=== PATIENT | female | born 1995 | race Caucasian/White ===

== ENCOUNTER → 2019-05-04 16:13 | Outpatient (CLI) | payer OTHER, SELFPAY ==
--- NOTE | 2019-05-04 16:16 | DI.US.S_ITS ---
PROCEDURE: US OB >= 14 WEEKS FETUS INDICATIONS: 20 WEEK ANATOMY OUTSIDE/PRIOR DATING DATA: Last menstrual period (LMP): 07/06/18. LMP-based estimated date of delivery (JUSTIN): 09/12/19. First dating scan (date and location): 05/04/19. Estimated date of delivery (JUSTIN) from first dating scan: 09/12/19. TECHNIQUE: Real-time scanning was performed of the fetus, with image documentation and biometric measurements. Endovaginal scanning: Not performed COMPARISON: None. FINDINGS: General: A single living intrauterine gestation is present. Presentation: Vertex. Placenta: Placental position is posterior, without previa. Amniotic fluid index: 23.0 cm, normal range is 5-24 cm. heart rate: 150 beats per minute. Maternal cervical canal: 3.8 cm long. Normal lower limit is 2.5 cm. biometrics: Biparietal diameter: 5.0 cm, 21 weeks 2 days Head circumference: 18.5 cm, 20 weeks 6 days Abdominal circumference: 18.2 cm, 21 weeks 5 days Femur length: 2.5 cm, 21 weeks one day Estimated gestational age from initial scan: 21 weeks 2 days Composite gestational age from present scan: 21 weeks 2 days Estimated weight and percentile: 460 g, 47th percentile Measurement variability for biometric dating: +/- 7 days from 14 weeks to 15 weeks 6 days gestation, +/- 10 days from 16 weeks to 21 weeks 6 days gestation, +/- 2 weeks from 22 weeks to 27 weeks 6 days gestation, +/- 3 weeks for 28 weeks gestation or later. weight reference: 4500 g or EFW >90/95% is considered macrosomia or large for gestational age. EFW <10% is small for gestational age. EFW 5% or less is considered intra-uterine growth restriction. Anatomic survey: Neuro: Ventricles are non-dilated at less than 10 mm. Cisterna magna is normal at 3-11 mm. Cerebellum is normal in size and morphology. Nuchal skin fold: Normal at less than 6 mm between 14-21 weeks gestational age. Face: Nose and lips, facial profile are normal. Spine: No evidence for spina bifida. Heart: 4-chambered heart is present, with normal ventricular outflow tracts. Diaphragm: Diaphragm is intact. Stomach: Left-sided stomach is present. Kidneys: No hydronephrosis. Normal is less than 5 mm in 2nd trimester, less than 7 mm in 3rd trimester. Cord: 3-vessel cord has orthotopic insertion. Bladder: Normal in size. Extremities: All 4 extremities identified. IMPRESSION: Single live intrauterine fetus in vertex presentation. Expected interval growth. Normal anatomic survey Dictated by: Eugenio Onofre M.D. on 05/04/2019 at 17:58 Approved by: Eugenio Onofre M.D. on 05/04/2019 at 18:02
== END ==
PROVIDERS: Visit Provider Family Medicine
DX: Z34.82 Encounter for supervision of other normal pregnancy, second trimester (principal); Z3A.21 21 weeks gestation of pregnancy
CPT/HCPCS: 76811

== ENCOUNTER → 2019-06-12 10:28 | Outpatient (CLI) | payer OTHER, SELFPAY ==
[2019-06-12 12:10] LABS: Hemoglobin 11.8 g/dL (12.0-16.0)
[2019-06-12 12:23] LABS: GTT (PREG) 1 Hour PP 50gm Dose 83 mg/dL (76-139)
== END ==
PROVIDERS: PCP Family Medicine; Referring Provider Family Medicine; Visit Provider Family Medicine
DX: Z34.00 Encounter for supervision of normal first pregnancy, unspecified trimester (principal)
CPT/HCPCS: 36415; 82950; 85014; 85018

== ENCOUNTER → 2019-08-20 13:15 | Outpatient (CLI) | payer OTHER, SELFPAY ==
[2019-08-21 08:37] LABS: Strep Grp B PCR NEG for Grp B Strep
== END ==
PROVIDERS: PCP Family Medicine; Referring Provider Family Medicine; Visit Provider Family Medicine
DX: Z34.83 Encounter for supervision of other normal pregnancy, third trimester (principal)
CPT/HCPCS: 87653

== ENCOUNTER → 2019-08-29 10:41 | Outpatient (CLI) | payer OTHER, SELFPAY ==
--- NOTE | 2019-08-29 10:44 | DI.US.S_ITS ---
PROCEDURE: US OB LIMITED INDICATIONS: SIZE LESS THAN DATES OUTSIDE/PRIOR DATING DATA: Last menstrual period (LMP): 12/06/18. LMP-based estimated date of delivery (JUSTIN): 09/12/19 First dating scan (date and location): 05/04/19. Estimated date of delivery (JUSTIN) from first dating scan: 09/12/19. TECHNIQUE: Real-time scanning was performed of the fetus, with image documentation and biometric measurements. Endovaginal scanning: Not needed COMPARISON: None. FINDINGS: General: A single living intrauterine gestation is present. Presentation: Vertex. Placenta: Placental position is posterior, without previa. Amniotic fluid index: 14.0 cm, normal range is 5-24 cm. heart rate: 144 beats per minute. biometrics: Biparietal diameter: 9.4 cm, 38 weeks 2 days Head circumference: 32.6 cm, 36 weeks 6 days Abdominal circumference: 38.1 cm, 37 weeks 0 days Femur length: 7.1 cm, 36 weeks 3 days Estimated gestational age from initial scan: 38 weeks 0 days Composite gestational age from present scan: 37 weeks 0 days Estimated weight and percentile: 3094 g, 36th percentile Measurement variability for biometric dating: +/- 7 days from 14 weeks to 15 weeks 6 days gestation, +/- 10 days from 16 weeks to 21 weeks 6 days gestation, +/- 2 weeks from 22 weeks to 27 weeks 6 days gestation, +/- 3 weeks for 28 weeks gestation or later. weight reference: 4500 g or EFW >90/95% is considered macrosomia or large for gestational age. EFW <10% is small for gestational age. EFW 5% or less is considered intra-uterine growth restriction. Other: Not applicable. IMPRESSION: Single living intrauterine gestation with appropriate interval growth. No sign of abnormal amniotic fluid volume. The delivery date is projected to be centered on 09/12/19. Dictated by: Mat Moralez M.D. on 08/29/2019 at 12:26 Approved by: Mat Moralez M.D. on 08/29/2019 at 12:29
== END ==
PROVIDERS: PCP Family Medicine; Referring Provider Family Medicine; Visit Provider Family Medicine
DX: Z36.4 Encounter for antenatal screening for fetal growth retardation (principal); Z3A.37 37 weeks gestation of pregnancy
CPT/HCPCS: 76815

== ENCOUNTER 2019-09-04 10:03 | Outpatient (CLI) | payer OTHER, SELFPAY ==
--- NOTE | 2019-09-04 10:52 | PM.OBTRLD ---
Visit Information Visit Information Date of evaluation: 09/04/19 Primary OB Provider: Ivett Hastings Reason for Evaluation: Yes rule out labor [facility] Medical History (Updated 09/04/19 @ 11:15 by Ivett Hastings MD) Acne (Acute) Attention deficit hyperactivity disorder (Acute) Social History marital status: details: Jos Roblero household members: spouse lives independently: Yes education level: college ([employer]) occupational status: employed and student do you feel safe at home: Yes Smoking Status: Never smoker substance use type: does not use Type(s) of exercise: aerobic frequency: 3-4 times per week duration: 15-30 minutes/day Evaluation Evaluation Baseline heart rate: 125 Variability: Moderate (11-25) monitor accelerations: Present monitor decelerations: Absent Contraction Frequency (minutes): 6 Uterine Contraction Intensity: Moderate Cervical dilation (cm): 2 Cervical effacement (%): 80 station: -2 Comments: Irregular contractions, q4-6 minutes Diagnosis, Plan/Disposition Final Diagnosis (1) Irregular contractions: Current Visit: Yes Status: Acute Plan/Disposition Plan: 38w6d. Contractions irregular and spacing further now. Not in active labor. OB Disposition: home
== END 2019-09-04 11:22 | disposition home or self-care (01) ==
LOC: OB 09-05 12:28
PROVIDERS: PCP Family Medicine; Referring Provider Family Medicine; Visit Provider Family Medicine
DX: Z34.03 Encounter for supervision of normal first pregnancy, third trimester (principal); Z3A.39 39 weeks gestation of pregnancy
CPT/HCPCS: 59025; G0378; G0379

== ENCOUNTER 2019-09-05 08:31 | Inpatient (IN) | payer OTHER, SELFPAY ==
[2019-09-05 11:04] LABS: COVID19 -Nasal RAPID Negative (Negative)
[2019-09-05] MEDS: LACTATED RINGERS 1,000 ML 100 ML IV (12:10)
--- NOTE | 2019-09-05 12:15 | PM.OBHP.1 ---
OB HPI Date/Time Date of admission: 09/05/19 Date Patient Seen: 09/05/19 Time Patient Seen: 12:20 History of Present Condition Chief complaint: OBSERVATION : 1 Para: 0 Estimated Date of Delivery: 09/12/19 Estimated Gestational Age (weeks): 39w0d Narrative: Alberta Roblero is a 23 year old at 39w0d who presented with concern for LOF and painful contractions. The pt reports that around 5:30am she felt a gush of fluid. The leaking continued for a few hours, but then stopped. She has intermittently been having painful contractions since yesterday morning as well. No vaginal bleeding. She is feeling her baby move regularly. History of Present care: good care and pounds weight gain (30) Dating criteria: LMP confirmed by 1st trimester US Ultrasounds: normal mid trimester US Obstetrical complications: none Medical complications: none Preadmission Labs Blood type: AB (+) positive -: Antibody screen: negative, GBS status: negative, HBsAG: negative, HIV: negative and RPR/VDLR: negative -: Chlamydia screen: not detected and Gonorrhea screen: not detected -: Rubella: immune and Varicella: immune HCT: 34.0 PAP: Normal Integrated screen: Negative 1 hr GTT: 83 Evaluation Evaluation Baseline heart rate: 130 Variability: Moderate (11-25) monitor accelerations: Present monitor decelerations: Absent Contraction Frequency (minutes): 3 Uterine Contraction Intensity: Strong/Firm Cervical dilation (cm): 5 Cervical effacement (%): 100 station: 0 Laboratory results: Laboratory Tests 09/05/19 09/05/19 09:30 09:32 COVID-19 PCR Negative Cancelled Non-invasive Membranes Rupture Test: negative [facility] Medical History (Updated 09/04/19 @ 11:15 by Ivett Hastings MD) Acne (Acute) Attention deficit hyperactivity disorder (Acute) Social History marital status: details: Jos Roblero household members: spouse lives independently: Yes education level: college ([employer]) occupational status: employed and student do you feel safe at home: Yes Smoking Status: Never smoker substance use type: does not use Type(s) of exercise: aerobic frequency: 3-4 times per week duration: 15-30 minutes/day Meds Home Medications and Allergies Home Medications Medication Instructions Recorded Confirmed Type multivit no.42-iron 38 1 cap PO DAILY 04/18/19 08/20/19 History mg-methyltetrahydfolate 1 mg-dha 225 mg capsule double electric breast pump and #1 ea 07/09/19 08/20/19 Rx supplies Allergies Allergy/AdvReac Type Severity Reaction Status Date / Time No Known Drug Allergies Allergy Unverified 08/27/19 09:28 Exam Narrative Exam Narrative: Gen: NAD, sitting in bed, appears well CV: RRR, no murmurs Resp: clear to auscultation bilaterally Abd: soft, gravid, nondistended Ext: trace edema Objective Labs Labs: Laboratory Results - last 24 hr 09/05/19 09/05/19 09:30 09:32 COVID-19 PCR Negative Cancelled Assessment and Plan Assessment and Plan Assessment and Plan narrative: 23yo at 39w0d who presented with concern for LOF, with negative amniosure. Converted to active labor after 2hrs walking, with 1-2 cm cervical change. GBS negative, Rh positive. - Expectant management, anticipate - FHT reassuring - Epidural for pain control now - GBS negative, no prophylaxis
[2019-09-05 12:47] LABS: Add Manual Diff / Slide Review NO; Basophils Absolute Auto 0 /uL (0-100); Basophils Percent Auto 0.4 % (0-2); Eosinophils Absolute Auto 0 /uL (0-450); Eosinophils Percent Auto 0.2 % (2-4); Hemoglobin 13.3 g/dL (12.0-16.0); Lymphocytes Absolute Auto 1100 /uL (1100-4500); Lymphocytes Percent Auto 10.1 % (25-40); Mean Corpuscular HGB Conc 34.2 % (30-36); Mean Corpuscular Hemoglobin 30.1 PG (26-34); Mean Corpuscular Volume 87.9 fL (80-100); Monocytes Absolute Auto 600 /uL (0-900); Monocytes Percent Auto 5.8 % (3-14); Neutrophils Absolute Auto 9300 /uL (1500-7000); Neutrophils Percent Auto 83.5 % (50-75); Platelet Count 316 X10^3/uL (150-400); Red Blood Cell Count 4.43 X10^6/uL (4.0-5.2); Red Cell Distribution Width 14.8 % (11.6-14.8); White Blood Cell Count 11.2 X10^3/uL (4.5-11.0)
[2019-09-05] MEDS: fentaNYL 100 MCG/2 ML INJ 50 MCG IV (13:00)
[2019-09-05] MEDS: ONDANSETRON 4 MG/2 ML INJ IV (13:27)
[2019-09-05 14:10] VITALS: BP 118/65
[2019-09-05] MEDS: OXYTOCIN 10 UNIT/ML VIAL 20 UNIT (15:53)
--- NOTE | 2019-09-05 16:11 | PM.OBPRVD ---
Labor & Delivery Delivery date: 09/05/19 Intrapartal events: None Cervical ripening method: none Induction method: none Delivery monitor: external FHT Route of delivery: Episiotomy description: None L&D Laceration Description: None Estimated blood loss (mL): 150 Anesthesia type: Epidural Complications: None Narrative: PROCEDURE: at 39w0d presented in active labor and was admitted to Labor and Delivery. The patient progressed through the 1st stage over 4 hours. Pain was controlled with an epidural. The patient progressed through the 2nd stage over 45 minutes and delivered a viable male infant with APGARs 9/9 at 15:46 via without complications. The cord was clamped and cut after it stopped pulsating. The perineum and vagina were inspected with no lacerations. PREPROCEDURE DIAGNOSIS: Intrauterine at 39w0d GBS negative RH positive POSTPROCEDURE DIAGNOSIS: Intrauterine at 39w0d, delivered Same as preprocedure ROM APPEARANCE: Clear BABY A DELIVERY TIME: 15:46 BABY A WEIGHT: 6lb10.6oz BABY A NUCHAL CORD: None PLACENTA DELIVERY TIME: 15:52 PLACENTA APPEARANCE: Intact [place] Baby 1: Infant gender: Male Presentation: vertex position: Right Occiput Anterior Placenta delivery description: Spontaneous cord vessel description: 3 Vessels score (1 min): 9 score (5 min): 9 Plan for aftercare: Normal care
[2019-09-05 17:48] VITALS: TEMP 35.9
[2019-09-05] MEDS: IBUPROFEN 600 MG TABLET PO (17:48)
[2019-09-05] MEDS: DERMOPLAST SPRAY 20% 60 ML 1 SPRAY TOP (17:49)
[2019-09-05] MEDS: ACETAMINOPHEN 325 MG TABLET 650 MG PO (20:11)
[2019-09-06] MEDS: IBUPROFEN 600 MG TABLET PO ×2 (00:11→07:13)
--- NOTE | 2019-09-06 08:25 | P.DS_ITS ---
Discharge Providers Provider Date of admission: 09/05/19 08:31 Discharge Date: 09/06/19 Primary care physician: Ivett Hastings MD Consults: 09/06/19 16:10 Consult to Logistics Clerk Routine Comment: Discharge provider: Ivett Hastings MD Summary Hospital Course Date Patient Seen: 09/06/19 Time Patient Seen: 07:30 Procedures: Spontaneous vaginal delivery Hospital Course: The pt presented in active labor. She received an epidural for pain control. She progressed to complete without intervention. She had an uncomplicated of a viable baby boy at 15:46 on 09/05/19. There were no lacerations. The pt tolerated delivery well. , there were no complications. At the time of discharge she was voiding, ambulating, and passing flatus without difficulty. Her pain was well controlled. Her lochia was decreasing appropriately. She was with good latch. She will f/u in clinic in 6 weeks. Peripartum Data Delivery Method: Natural Vaginal Laceration description: None Episiotomy description: None Procedures: Spontaneous vaginal delivery complications: none 1: Gender: Male Discharge Diagnosis (1) Spontaneous vaginal delivery: Status: Acute Time Spent with Patient Time attestation: Total time spent providing and/or coordinating discharge services: Time spent: Greater than 30 minutes Objective Labs Result Diagrams: 09/05/19 12:10 Labs: Laboratory Results - last 24 hr 09/05/19 09/05/19 09/05/19 09:30 09:32 12:10 WBC 11.2 H RBC 4.43 Hgb 13.3 Hct 39.0 MCV 87.9 MCH 30.1 MCHC 34.2 RDW 14.8 Plt Count 316 Neut % (Auto) 83.5 H Lymph % (Auto) 10.1 L Ritchie % (Auto) 5.8 Eos % (Auto) 0.2 L Baso % (Auto) 0.4 Neut # (Auto) 9300 H Lymph # (Auto) 1100 Ritchie # (Auto) 600 Eos # (Auto) 0 Baso # (Auto) 0 COVID-19 PCR Negative Cancelled Blood Type Antibody Screen 09/05/19 12:10 WBC RBC Hgb Hct MCV MCH MCHC RDW Plt Count Neut % (Auto) Lymph % (Auto) Ritchie % (Auto) Eos % (Auto) Baso % (Auto) Neut # (Auto) Lymph # (Auto) Ritchie # (Auto) Eos # (Auto) Baso # (Auto) COVID-19 PCR Blood Type AB Positive Antibody Screen Negative Exam Narrative Exam Narrative: Gen: NAD, sitting comfortably in bed, appears well CV: RRR, no murmurs Resp: clear to auscultation bilaterally Abd: soft, nontender, fundus firm and below umbilicus, normoactive bowel sounds, nondistended Ext: no edema Discharge Plan Discharge Plan Patient Disposition: Home Discharge orders & Medications Prescriptions: New acetaminophen 325 mg Tablet 650 mg PO Q6HR PRN (Reason: Pain, Mild (1-3)) Qty: 30 RF: 0 Dermoplast (with menthol) 20-0.5 % Aerosol 1 spray topical Q1HR PRN (Reason: perineal pain) Qty: 54 RF: 0 docusate sodium [DOK] 100 mg Capsule 100 mg PO DAILY Qty: 30 RF: 0 ibuprofen 600 mg Tablet 600 mg PO Q6HR PRN (Reason: Pain, Mild (1-3)) Qty: 30 RF: 0 [id number]-D-Uukkbr Cream 1 applic topical PRN PRN (Reason: Tenderness) Qty: 15 RF: 0 Continued (DME) double electric breast pump and supplies Qty: 1 RF: 0 multivit no.[id number]-dha 38-1-225 mg capsule 1 cap PO DAILY RF: 0 Follow up/Referrals: Ivett Hastings MD [Primary Care Provider] - 6 Weeks Diet/Activity/Treatments Diet: Diet as Tolerated and Regular Skin/Wound/Dressing Care Report to your healthcare provider any signs of infection, such as:: chills, fever, increased pain and unusual drainage Visit Report/Discharge Packet Instructions: DI for Labor and Delivery, Vaginal Visit Report Forms: Patient Portal/API, Stroke Signs & Symptoms Discharge Data Primary Care Provider: Ivett Hastings Attending Provider: Ivett Hastings Admit Date/Time: 09/05/19 08:31
[2019-09-06] MEDS: DOCUSATE 100 MG CAPSULE PO (09:49)
[2019-09-06] MEDS: PRENATAL VIT,CALC/IRON/FOLIC 1 TABLET 1 TAB PO (09:49)
[2019-09-06 14:29] VITALS: BP 118/65; TEMP 35.9
[2019-09-06] MEDS: ACETAMINOPHEN 325 MG TABLET 650 MG PO (15:08)
== END 2019-09-06 17:45 | disposition home or self-care (01) | DRG 807 ==
PROVIDERS: Admitting Provider Family Medicine; PCP Family Medicine; Referring Provider Family Medicine; Visit Provider Family Medicine
DX: O80 Encounter for full-term uncomplicated delivery (principal); Z37.0 Single live birth; Z3A.39 39 weeks gestation of pregnancy; Z11.59 Encounter for screening for other viral diseases
CPT/HCPCS: 01967; 59050; 59410; 85025; 86850; 86900; 86901; 87635; G0379; J2405; J2590; J3010

== ENCOUNTER → 2020-11-13 18:57 | Outpatient (CLI) | payer OTHER, SELFPAY ==
[2020-11-13 20:16] LABS: COVID19 -Nasal RAPID Negative (Negative)
== END ==
PROVIDERS: PCP Nurse Practitioner Family; Visit Provider Physician Assistant
DX: J31.2 Chronic pharyngitis (principal); Z20.822 Contact with and (suspected) exposure to COVID-19
CPT/HCPCS: 87070; 87635

== ENCOUNTER → 2022-05-26 08:59 | Outpatient (CLI) | payer OTHER, SELFPAY ==
[2022-05-26 09:18] LABS: Add Manual Diff / Slide Review NO; Basophils Absolute Auto 0 /uL (0-100); Basophils Percent Auto 0.9 % (0-2); Eosinophils Absolute Auto 100 /uL (0-450); Eosinophils Percent Auto 1.7 % (2-4); Hematocrit 40.6 % (36-46); Hemoglobin 13.9 g/dL (12.0-16.0); Lymphocytes Absolute Auto 1300 /uL (1100-4500); Lymphocytes Percent Auto 28.1 % (25-40); Mean Corpuscular HGB Conc 34.2 % (30-36); Mean Corpuscular Hemoglobin 29.6 PG (26-34); Mean Corpuscular Volume 86.8 fL (80-100); Monocytes Absolute Auto 400 /uL (0-900); Monocytes Percent Auto 8.2 % (3-14); Neutrophils Absolute Auto 2900 /uL (1500-7000); Neutrophils Percent Auto 61.1 % (50-75); Platelet Count 305 X10^3/uL (150-400); Red Blood Cell Count 4.68 X10^6/uL (4.0-5.2); Red Cell Distribution Width 13.5 % (11.6-14.8); White Blood Cell Count 4.8 X10^3/uL (4.5-11.0)
[2022-05-26 12:20] LABS: Alanine Aminotransferase 15 IU/L (<35); Albumin 4.5 g/dL (3.5-5.0); Albumin Globulin Ratio 1.6 (1.0-2.8); Alkaline Phosphatase 40 U/L (38-126); Aspartate Aminotransferase 22 IU/L (14-36); BUN Creatinine Ratio 19.3 (6-22); Bilirubin Total 0.7 mg/dL (0.2-1.3); Blood Urea Nitrogen 11 mg/dL (7-17); Carbon Dioxide 28 mmol/L (22-32); Chloride 101 mmol/L (98-107); Cholesterol 124 mg/dL (140-199); Estimated Glomerular Filt Rate > 60 mL/min (>60); Globulin 2.8 g/dL (1.7-4.1); Glucose 95 mg/dL (70-100); HDL Cholesterol 58 mg/dL (40-60); HEMOLYSIS < 15 (0-50); LDL Cholesterol Calculated 59 mg/dL (<100); Potassium 3.8 mmol/L (3.4-5.1); Sodium 137 mmol/L (137-145); Total Protein 7.3 g/dL (6.3-8.2); Triglycerides 35 mg/dL (35-150)
[2022-05-26 12:50] LABS: TSH w/ Reflex to FT4 1.46 uIU/mL (0.47-4.68)
[2022-05-26 13:09] LABS: Vitamin B12 377 pg/mL (239-931)
== END ==
PROVIDERS: PCP Family Medicine; Referring Provider Family Medicine; Visit Provider Family Medicine
DX: L65.9 Nonscarring hair loss, unspecified (principal); Z00.00 Encounter for general adult medical examination without abnormal findings; Z13.220 Encounter for screening for lipoid disorders
CPT/HCPCS: 36415; 80053; 80061; 82607; 84443; 85025

== ENCOUNTER → 2022-08-04 14:27 | Outpatient (CLI) | payer OTHER, SELFPAY ==
[2022-08-04 15:34] LABS: Add Manual Diff / Slide Review NO; Basophils Absolute Auto 0 /uL (0-100); Basophils Percent Auto 0.5 % (0-2); Eosinophils Absolute Auto 200 /uL (0-450); Eosinophils Percent Auto 2.2 % (2-4); Hematocrit 36.4 % (36-46); Hemoglobin 12.7 g/dL (12.0-16.0); Lymphocytes Absolute Auto 1600 /uL (1100-4500); Lymphocytes Percent Auto 18.4 % (25-40); Mean Corpuscular HGB Conc 34.9 % (30-36); Mean Corpuscular Hemoglobin 30.3 PG (26-34); Mean Corpuscular Volume 86.9 fL (80-100); Monocytes Absolute Auto 500 /uL (0-900); Monocytes Percent Auto 6.3 % (3-14); Neutrophils Absolute Auto 6200 /uL (1500-7000); Neutrophils Percent Auto 72.6 % (50-75); Platelet Count 336 X10^3/uL (150-400); Red Blood Cell Count 4.19 X10^6/uL (4.0-5.2); Red Cell Distribution Width 13.3 % (11.6-14.8); White Blood Cell Count 8.6 X10^3/uL (4.5-11.0)
[2022-08-04 17:37] LABS: Appearance Urine UA CLEAR; Bilirubin Urine UA NEGATIVE (NEGATIVE); Color Urine UA YELLOW; Glucose Urine UA NEGATIVE (Negative); Ketones Urine UA TRACE (NEGATIVE); Leukocyte Esterase Urine UA NEGATIVE (NEGATIVE); Nitrite Urine UA NEGATIVE (Negative); Occult Blood Urine UA NEGATIVE (Negative); Protein Urine UA NEGATIVE (Negative); Specific Gravity Urine UA >=1.030 (1.000-1.035); Urobilinogen Urine UA 0.2 E.U./dL (0.2)
[2022-08-04 17:41] LABS: pH Urine UA 5.5 (4.5-8.0)
[2022-08-04 19:03] LABS: Hepatitis B Surface Antigen NEGATIVE s/c (NEGATIVE)
[2022-08-04 19:05] LABS: HIV 1 & 2 Ab/Ag 4th Gen Combo NEGATIVE (NEGATIVE); Hep C Virus Ab w/Reflex Quant NEGATIVE s/c (NEGATIVE)
[2022-08-05 19:28] LABS: Varicella IgG Antibody 169 index (Immune >165)
[2022-08-06 06:08] LABS: RPR Screen Non Reactive (Non Reactive)
== END ==
PROVIDERS: PCP Family Medicine; Referring Provider Family Medicine; Visit Provider Family Medicine
DX: Z34.81 Encounter for supervision of other normal pregnancy, first trimester (principal)
CPT/HCPCS: 36415; 80055; 81003; 86787; 86803; 86850; 86900; 86901; 87389

== ENCOUNTER → 2022-09-03 11:35 | Outpatient (CLI) | payer OTHER, SELFPAY ==
[2022-09-03 12:48] LABS: HCG Quantitative /Beta subunit 321.8 mIU/mL
== END ==
PROVIDERS: PCP Family Medicine; Referring Provider Family Medicine; Visit Provider Family Medicine
DX: O03.4 Incomplete spontaneous abortion without complication (principal); Z3A.00 Weeks of gestation of pregnancy not specified
CPT/HCPCS: 36415; 84702

== ENCOUNTER → 2022-09-07 08:01 | Outpatient (CLI) | payer OTHER, SELFPAY ==
[2022-09-07 10:53] LABS: HCG Quantitative /Beta subunit 145.2 mIU/mL
== END ==
PROVIDERS: PCP Family Medicine; Referring Provider Family Medicine; Visit Provider Family Medicine
DX: O03.4 Incomplete spontaneous abortion without complication (principal)
CPT/HCPCS: 36415; 84702

== ENCOUNTER → 2022-09-14 12:19 | Outpatient (CLI) | payer OTHER, SELFPAY ==
[2022-09-14 14:15] LABS: HCG Quantitative /Beta subunit 82.8 mIU/mL
== END ==
PROVIDERS: PCP Family Medicine; Referring Provider Family Medicine; Visit Provider Family Medicine
DX: O03.9 Complete or unspecified spontaneous abortion without complication (principal); Z34.90 Encounter for supervision of normal pregnancy, unspecified, unspecified trimester
CPT/HCPCS: 36415; 84702

== ENCOUNTER → 2023-04-12 06:59 | Outpatient (CLI) | payer OTHER, SELFPAY ==
[2023-04-12 08:06] LABS: Add Manual Diff / Slide Review NO; Basophils Absolute Auto 0 /uL (0-100); Basophils Percent Auto 0.8 % (0-2); Eosinophils Absolute Auto 200 /uL (0-450); Hematocrit 39.6 % (36-46); Hemoglobin 13.8 g/dL (12.0-16.0); Lymphocytes Absolute Auto 1100 /uL (1100-4500); Lymphocytes Percent Auto 20.8 % (25-40); Mean Corpuscular HGB Conc 34.7 % (30-36); Mean Corpuscular Hemoglobin 30.1 PG (26-34); Mean Corpuscular Volume 86.6 fL (80-100); Monocytes Absolute Auto 400 /uL (0-900); Monocytes Percent Auto 7.1 % (3-14); Neutrophils Absolute Auto 3600 /uL (1500-7000); Neutrophils Percent Auto 67.3 % (50-75); Platelet Count 244 X10^3/uL (150-400); Red Blood Cell Count 4.57 X10^6/uL (4.0-5.2); Red Cell Distribution Width 13.9 % (11.6-14.8); White Blood Cell Count 5.3 X10^3/uL (4.5-11.0)
[2023-04-12 08:50] LABS: Hepatitis B Surface Antigen NEGATIVE s/c (NEGATIVE); Rubella Antibody IgG 23.6 IU/mL (>15)
[2023-04-12 09:07] LABS: HIV 1 & 2 Ab/Ag 4th Gen Combo NEGATIVE (NEGATIVE); Hep C Virus Ab w/Reflex Quant NEGATIVE s/c (NEGATIVE)
[2023-04-13 03:44] LABS: RPR Screen Non Reactive (Non Reactive)
[2023-04-13 09:10] LABS: Varicella IgG Antibody 177 index (Immune >165)
== END ==
LOC: LAB 06:59
PROVIDERS: PCP Family Medicine; Referring Provider Family Medicine; Visit Provider Family Medicine
DX: Z34.80 Encounter for supervision of other normal pregnancy, unspecified trimester (principal)
CPT/HCPCS: 36415; 80055; 86787; 86803; 86850; 86900; 86901; 87389

== ENCOUNTER → 2023-05-11 09:16 | Outpatient (CLI) | payer OTHER, SELFPAY ==
[2023-05-11 09:53] LABS: Appearance Urine UA CLOUDY; Bilirubin Urine UA NEGATIVE (NEGATIVE); Color Urine UA YELLOW; Glucose Urine UA NEGATIVE (Negative); Ketones Urine UA NEGATIVE (NEGATIVE); Leukocyte Esterase Urine UA NEGATIVE (NEGATIVE); Nitrite Urine UA NEGATIVE (Negative); Occult Blood Urine UA NEGATIVE (Negative); Protein Urine UA NEGATIVE (Negative); Specific Gravity Urine UA 1.015 (1.000-1.035)
[2023-05-14 00:49] LABS: AFP, Serum 42.2 ng/mL (.); Calc Gestational Age As provided (.); Inhibin A, Dimeric 143.54 pg/mL (.); Inhibin A, MoM 0.91 (.); Maternal Ethnicity Caucasian (.); Maternal Weight 145 lbs (.); Number of Fetuses No (.); OSBR Risk 1 IN 10000 (.); Results Report (.); Test Results *Screen Negative* (.); hCG, MoM 1.28 (.); hCG, Serum 37634 mIU/mL (.)
== END ==
PROVIDERS: PCP Family Medicine; Referring Provider Family Medicine; Visit Provider Family Medicine
DX: Z34.80 Encounter for supervision of other normal pregnancy, unspecified trimester (principal)
CPT/HCPCS: 36415; 81003; 82105; 82677; 84702; 86336; 87086

== ENCOUNTER → 2023-06-06 07:44 | Outpatient (CLI) | payer OTHER, SELFPAY ==
--- NOTE | 2023-06-06 07:45 | DI.US.S_ITS ---
PROCEDURE: US OB >= 14 WEEKS FETUS INDICATIONS: ANATOMY OUTSIDE/PRIOR DATING DATA: Last menstrual period (LMP): January 16, 2023. LMP-based estimated date of delivery (JUSTIN): October 23, 2023. First dating scan (date and location): March 14, 2023. Estimated date of delivery (JUSTIN) from first dating scan: October 22, 2023. The calculations are made using the clinical JUSTIN of October 23, 2023. TECHNIQUE: Real-time scanning was performed of the fetus, with image documentation and biometric measurements. Endovaginal scanning: Not performed COMPARISON: None. FINDINGS: General: A single living intrauterine gestation is present. Presentation: Vertex. Placenta: Placental position is posterior , without previa. Amniotic fluid index: 13.6 cm, normal range is 5-24 cm. Single deepest vertical pocket is 3.6 cm. heart rate: 149 beats per minute. Maternal cervical canal: 3.9 cm long. Normal lower limit is 2.5 cm. biometrics: Biparietal diameter: 4.6 cm, 19 weeks and 6 days Head circumference: 16.7 cm, 19 weeks and 3 days Abdominal circumference: 14.2 cm, 19 weeks and 4 days Femur length: 3.1 cm, 19 weeks and 4 days Clinically estimated gestational age: 20 weeks and 1 day Composite gestational age from present scan: 19 weeks and 4 days Estimated weight and percentile: 298 g which correlates with the 17th percentile Anatomic survey: Neuro: Ventricles are non-dilated at less than 10 mm. Cisterna magna is normal at 3-11 mm. Cerebellum is normal in size and morphology. Nuchal skin fold: Normal at less than 6 mm between 14-21 weeks gestational age. Face: Nose and lips, facial profile are normal. Spine: No evidence for spina bifida. Heart: 4-chambered heart is present, with normal ventricular outflow tracts. Diaphragm: Diaphragm is intact. Stomach: Left-sided stomach is present. Kidneys: No hydronephrosis. Normal is less than 5 mm in 2nd trimester, less than 7 mm in 3rd trimester. Cord: 3-vessel cord has orthotopic insertion. Bladder: Normal in size. Extremities: All 4 extremities identified. IMPRESSION: Single living intrauterine gestation with estimated sonographic gestational age of approximately 19 weeks and 4 days which measures concordantly with gestational age by last menstrual period of approximately 20 weeks and 1 day. Estimated weight of approximately 298 g which correlates with the 17th percentile based off gestational age. Unremarkable routine second-trimester anatomy screening survey. We strive to produce accurate, complete, and clear reports of imaging services. To assist us in improving patient care, this report was composed using standard report templates and voice recognition software. Therefore, it may contain abnormal punctuation, insertions and/or omissions. Occasional wrong-word or sound-alike substitutions may occur. Though we review the report and make efforts to correct it, we do recommend that the report be read carefully in proper context to recognize any text inaccuracies. Dictated by: Viral Kaye M.D. on 06/06/2023 at 12:28 Approved by: Viral Kaye M.D. on 06/06/2023 at 12:43
== END ==
PROVIDERS: PCP Family Medicine; Referring Provider Family Medicine; Visit Provider Family Medicine
DX: Z34.82 Encounter for supervision of other normal pregnancy, second trimester (principal); Z3A.19 19 weeks gestation of pregnancy
CPT/HCPCS: 76811